=== PATIENT | female | born 1995 | race Two or more races ===

== ENCOUNTER → 2025-07-21 | Outpatient (CLI) | payer MEDICAID, SELFPAY ==
--- NOTE | 2025-07-21 13:30 | XR_ITS ---
Examination: CT right ankle, without contrast. 2-D sagittal reconstructions. 2-D coronal reconstructions. 3-D reconstructions. Date and time of exam:July 21, 2025 1330 hours INDICATIONS: Right ankle and foot pain beginning 4 years ago CTDI: vol (mGy):5.46 DLP: (mGycm):104 Technique: Multiple 1.25 mm axial sections of the right ankle have been obtained. 2-D sagittal and coronal reconstructions have been obtained. 3-D reconstructions have been obtained. Low dose protocols were performed. One or more of the following dose reduction techniques were used; automated exposure control, adjustment of the mA and/or KV according to patient size, use of iterative reconstruction technique. Findings: Mild osteopenia. Mild osteoarthritis subtalar joint No fractures 2 mm plantar bony calcaneal spur No avascular necrosis. Dome the talus intact No cortical bone destruction IMPRESSION: Mild osteoarthritis subtalar joint
--- NOTE | 2025-07-21 14:00 | XR_ITS ---
Examination: CT right foot, without contrast. 2-D sagittal reconstructions. 2-D coronal reconstructions. 3-D reconstructions. Date and time of exam:July 21, 2025 1330 hours INDICATIONS: Right foot pain four years CTDI: vol (mGy):5.29 DLP: (mGycm):5 Technique: Multiple 1.25 mm axial sections of the right foot have been obtained. 2-D sagittal and coronal reconstructions have been obtained. 3-D reconstructions have been obtained. Low dose protocols were performed. One or more of the following dose reduction techniques were used; automated exposure control, adjustment of the mA and/or KV according to patient size, use of iterative reconstruction technique. Findings: Mild osteopenia. Mild osteoarthritis subtalar and calcaneal cuboid joints Tiny plantar bony calcaneal spur No Lisfranc tarsometatarsal dislocations Metatarsals digits intact No erosive arthritis IMPRESSION: Mild osteoarthritis subtalar and calcaneocuboid joints
== END | disposition home or self-care (01) ==
PROVIDERS: PCP Nurse Practitioner Family; Referring Provider Nurse Practitioner Family; Visit Provider Nurse Practitioner Family
DX: M19.071 Primary osteoarthritis, right ankle and foot (principal); G89.29 Other chronic pain
CPT/HCPCS: 73700